=== PATIENT | male | born 1970 | race Caucasian/White ===

== ENCOUNTER 2021-12-05 00:50 | Day surgery (SDC) | payer BC, SELFPAY ==
[2021-11-21 11:08] VITALS: BMI 34.7
[2021-12-05 09:10] VITALS: BP 174/93; PULSE 73; RESP 18; TEMP 36.2; O2SAT 99
[2021-12-05] MEDS: LACTATED RINGERS 1,000 ML 150 ML IV CONT (09:17)
--- NOTE | 2021-12-05 09:22 | WPDANESEPPF ---
Anes - Initial Pre Proc Eval Procedure: Operation Date: 12/05/21 10:15 Proposed Procedures p Screening Colonoscopy - Yehuda Salgado MD Date/Time: 12/05/21 09:22 Surgeon: Yehuda Salgado MD Pre Op Diagnosis: neoplasm screening Patient Data Age: 51 Gender: M Height: 1.8 m Weight: 113.6 kg Last Vital Signs Temp 36.2 C L 12/05/21 09:10 Pulse 73 12/05/21 09:10 Resp 18 12/05/21 09:10 BP 174/93 H 12/05/21 09:10 Pulse Ox 99 12/05/21 09:10 O2 Del Method Room Air 12/05/21 09:10 Allergies Allergy/AdvReac Type Severity Reaction Status Date / Time No Known Allergies Allergy Verified 12/05/21 09:09 Home Medications Medication Instructions Recorded Confirmed Type lisinopril 10 1 tablet PO DAILY #30 tabs 10/23/21 11/21/21 Rx mg-hydrochlorothiazide 12.5 mg tablet tadalafil 20 mg tablet (Cialis) 20 mg PO DAILY PRN sexual activity 12/02/21 12/05/21 Rx #6 tabs Patient hx anesthesia problems: none Family hx anesthesia problems: none Results Review: All pre-operative results and documents have been reviewed as part of the pre-operative evaluation. [facility] Past Medical History Medical History Adult BMI 34.0-34.9 kg/sq m Apnea Essential hypertension GERD (gastroesophageal reflux disease) Screen for colon cancer Family History Family History Father Hypertension Mother Hypertension Grandparent Family history of malignant neoplasm of uterus Family history of heart disease in male family member before age 55 Social History Social History Smoking status: Never smoker Alcohol intake: current Drinks per week: 4 Substance use type: does not use Living arrangements: with family Spiritual care concerns: No Anes - Eval Final PreProcedure Day of Procedure 12/05/21 09:22 Patient weight: obese Heart: regular rate and rhythm Lungs: clear to auscultation Airway: Mallampati scale class IV Neurological: alert and oriented Last oral intake: >/= 8 hours ASA classification: III Emergent: no Anesthetic plan: proceed Anesthesia type and monitoring: general GIVS and standard monitoring Results Review: All pre-operative results and documents have been reviewed as part of the pre-operative evaluation. Informed Consent: The patient's anesthetic plan and its attendant risks and benefits were discussed with the patient/family/POA. Questions were solicited and answers provided to the satisfaction of the patient/family/POA.
--- NOTE | 2021-12-05 10:04 | P.HP_ITS ---
H&P: HPI History of Present Illness Date/Time: 12/05/21 10:04 Chief Complaint: Neoplasia screening. Narrative: This is a 51-year-old white male patient presents for screening colonoscopy. Patient's current weight appetite bowel movements are normal. He denies abdominal pain. He has had no bleeding. Family history is noncontributory. Review of Systems Review of Systems: Review of systems noncontributory. [facility] Past Medical History Medical History Adult BMI 34.0-34.9 kg/sq m Apnea Essential hypertension GERD (gastroesophageal reflux disease) Screen for colon cancer Family History Family History Father Hypertension Mother Hypertension Grandparent Family history of malignant neoplasm of uterus Family history of heart disease in male family member before age 55 Social History Social History Smoking status: Never smoker Alcohol intake: current Drinks per week: 4 Substance use type: does not use Living arrangements: with family Spiritual care concerns: No Meds Home Medications and Allergies Home Medications Medication Instructions Recorded Confirmed Type lisinopril 10 1 tablet PO DAILY #30 tabs 10/23/21 11/21/21 Rx mg-hydrochlorothiazide 12.5 mg tablet tadalafil 20 mg tablet (Cialis) 20 mg PO DAILY PRN sexual activity 12/02/21 12/05/21 Rx #6 tabs Allergies Allergy/AdvReac Type Severity Reaction Status Date / Time No Known Allergies Allergy Verified 12/05/21 09:09 Vital Signs Vital Signs - 24 hr 12/05/21 09:10 Temperature 97.1 F L Pulse Rate 73 Respiratory Rate 18 Blood Pressure 174/93 H Pulse Oximetry 99 Oxygen Delivery Room Air Exam Narrative: Physical exam reveals patient to be alert. Vital signs stable. HEENT exam is unremarkable. Patient is anicteric. Lungs are clear to auscultation and percussion. Heart is without murmur or extra sounds. Abdominal exam bowel sounds present soft nontender with no organomegaly. Digital external rectal exam is normal. Assessment and Plan Assessment and plan (1) Encounter for screening colonoscopy: Code(s): Z12.11 - Encounter for screening for malignant neoplasm of colon Status: Acute Assessment and Plan: Patient presents for screening colonoscopy. Current weight appetite bowel movements are normal. Further recommendations will be given after endoscopy.
[2021-12-05 10:28] VITALS: BP 126/78; PULSE 70; RESP 17; O2SAT 99
[2021-12-05 10:38] VITALS: BP 123/80; PULSE 69; RESP 17; O2SAT 98
[2021-12-05 10:48] VITALS: BP 131/92; PULSE 67; RESP 16; O2SAT 96
== END 2021-12-05 10:50 | disposition home or self-care (01) ==
PROVIDERS: PCP Family Medicine; Visit Provider Internal Medicine Gastroenterology
PROC: 0DJD8ZZ Inspection of Lower Intestinal Tract, Via Natural or Artificial Opening Endoscopic (ICD-10-PCS; CPT 45378; principal; 2021-12-05 10:15)
DX: Z12.11 Encounter for screening for malignant neoplasm of colon (principal); K64.8 Other hemorrhoids; R06.81 Apnea, not elsewhere classified; I10 Essential (primary) hypertension; K21.9 Gastro-esophageal reflux disease without esophagitis; E66.9 Obesity, unspecified; Z68.34 Body mass index [BMI] 34.0-34.9, adult
CPT/HCPCS: 45378; J2704; J7120

== ENCOUNTER 2021-12-12 07:49 | Outpatient (CLI) | payer BC, SELFPAY ==
--- NOTE | 2021-12-29 19:04 | WPDHOMESLEEP ---
Sleep Study - Home Unattended Date of Study: 12/12/21 Ordering Provider: Main Humphreys MD Interpreting Provider: Rhonda Kenny, DO Home Sleep Study Type: Watch PAT Height: 1.8 m Weight: 113.398 kg Body Mass Index: 34.8 Neck Circumference (inches): 18 [place]: 7 Reason for Sleep Study Snoring and apneas Sleep History The patient is a 51-year-old male with hypertension, GERD, seasonal allergies and sexual dysfunction that had a sleep study ordered by his primary care physician for evaluation of sleep apnea. The patient rarely awakens from sleep short of breath. He occasionally awakens at night with heartburn, belching or cough. He frequently snores loud enough that others complain. He rarely has trouble sleeping when he has a cold. He rarely wakes up gasping for air throughout the night. He occasionally has breathing problems at night observed by himself or others. He denies sweating excessively at night. He denies having heart palpitations or irregular heartbeats during the night. He rarely falls asleep during the day but never while driving. He denies sleep paralysis, cataplexy and hypnagogic / hypnopompic hallucinations. He denies having trouble at school or work due to sleepiness. He denies feeling afraid of going to sleep. He denies having nightmares. He rarely remembers his dreams. He denies having thoughts racing through his mind. He denies feeling sad or depressed. He occasionally has anxiety. He denies having muscular tension. He denies noticing parts of his body jerk. He denies kicking during the night. He rarely has crawling and aching feelings in his legs. He denies having leg pain during the night. He occasionally grinds his teeth during sleep but rarely awakens with morning jaw pain. He is rarely bothered by pain during the day and never awakened by pain during the night. He rarely wakes up feeling stiff in the morning. He rarely wakes up with sore achy muscles. He rarely wakes up with pain in the neck, spine or other joints. He goes to bed between 930-10 p.m. on weekdays and between 10 30 to 11:30 p.m. on the weekends. He takes him 2-3 minutes to fall asleep. He wakes up 1-2 times throughout the night for unknown reasons. When he awakens, he will try to fall back asleep or turn on the TV. He can take him a few minutes to an hour to fall back asleep. He wakes up at 5:00 a.m. on weekdays and at 6:30 a.m. on the weekends. He typically gets 6-8 hours of sleep per night. He will get up immediately after awakening during the week. He will stay in bed for 30-45 minutes after awakening on the weekends. He currently lives alone. He does not consume any caffeinated beverages within 2 hours of bedtime. He does not engage in physical exercise before bedtime. He will watch television before falling asleep. He will occasionally take naps in the afternoon or the evening and they are refreshing. He drinks 12 oz of caffeinated beverage per day. He drinks alcoholic beverages a few times per week. He denies tobacco and recreational drug use. [facility] Past Medical History Medical History Adult BMI 34.0-34.9 kg/sq m Apnea Essential hypertension GERD (gastroesophageal reflux disease) Screen for colon cancer Family History Family History Father Hypertension Mother Hypertension Grandparent Family history of malignant neoplasm of uterus Family history of heart disease in male family member before age 55 Social History Social History Smoking status: Never smoker Alcohol intake: current Drinks per week: 4 Substance use type: does not use Spiritual care concerns: No Medications Home Medications Medication Instructions Recorded Confirmed Type lisinopril 10 1 tablet PO DAILY #30 tabs 10/23/21 11/21/21 Rx mg-hydrochl
[2021-12-29 19:22] VITALS: BMI 34.8
== END 2021-12-16 11:08 | disposition home or self-care (01) ==
LOC: ANHCSM 07:51
PROVIDERS: PCP Family Medicine; Visit Provider Family Medicine
DX: G47.33 Obstructive sleep apnea (adult) (pediatric) (principal)
CPT/HCPCS: 95800

== ENCOUNTER 2022-02-18 07:47 | Outpatient (CLI) | payer BC, SELFPAY ==
--- NOTE | 2022-03-15 16:23 | WPDSLEEPSTUD ---
Sleep Study Date of Study: 02/18/22 Ordering Provider: Main Humphreys MD Interpreting Physician: Pamela Santos MD Sleep Study Type: CPAP Titration Height: 1.8 m Weight: 113.398 kg Body Mass Index: 34.8 Neck Circumference (inches): [address] [place]: 7 Reason for Sleep Study * 12/12/2021, home sleep test using WatchPat, severe sleep apnea with an AHI of 43.1, desaturation to 69%. He present for a CPAP titration. Sleep History Jeronimo Berrios?is a 51-year-old male with hypertension, GERD, seasonal allergies and sexual dysfunction. He had a home sleep study showing severe obstructive sleep apnea. The patient rarely awakens from sleep short of breath.? He occasionally awakens at night with heartburn, belching or cough.? He frequently snores loud enough that others complain.? He rarely has trouble sleeping when he has a cold.? He rarely wakes up gasping for air throughout the night.? He occasionally has breathing problems at night observed by himself or others.? He denies sweating excessively at night.? He denies having heart palpitations or irregular heartbeats during the night.? He rarely falls asleep during the day but never while driving.? He denies sleep paralysis, cataplexy and hypnagogic / hypnopompic hallucinations.? He denies having trouble at school or work due to sleepiness.? He denies feeling afraid of going to sleep.? He denies having nightmares.? He rarely remembers his dreams.? He denies having thoughts racing through his mind.? He denies feeling sad or depressed.? He occasionally has anxiety.? He denies having muscular tension.? He denies noticing parts of his body jerk.? He denies kicking during the night.? He rarely has crawling and aching feelings in his legs.? He denies having leg pain during the night.? He occasionally grinds his teeth during sleep but rarely awakens with morning jaw pain.? He is rarely bothered by pain during the day and never awakened by pain during the night.? He rarely wakes up feeling stiff in the morning.? He rarely wakes up with sore achy muscles.? He rarely wakes up with pain in the neck, spine or other joints.? He goes to bed between 930-10 p.m. on weekdays and between 10 30 to 11:30 p.m. on the weekends.? He takes him 2-3 minutes to fall asleep.? He wakes up 1-2 times throughout the night for unknown reasons.? When he awakens, he will try to fall back asleep or turn on the TV.? He can take him a few minutes to an hour to fall back asleep.? He wakes up at 5:00 a.m. on weekdays and at 6:30 a.m. on the weekends.? He typically gets 6-8 hours of sleep per night.? He will get up immediately after awakening during the week.? He will stay in bed for 30-45 minutes after awakening on the weekends.? He currently lives alone.? He does not consume any caffeinated beverages within 2 hours of bedtime.? He does not engage in physical exercise before bedtime.? He will watch television before falling asleep.? He will occasionally take naps in the afternoon or the evening and they are refreshing. He drinks 12 oz of caffeinated beverage per day.? He drinks alcoholic beverages a few times per week.? He denies tobacco and recreational drug use. [facility] Past Medical History Medical History Adult BMI 34.0-34.9 kg/sq m Apnea Essential hypertension GERD (gastroesophageal reflux disease) Screen for colon cancer Family History Family History Father Hypertension Mother Hypertension Grandparent Family history of malignant neoplasm of uterus Family history of heart disease in male family member before age 55 Social History Social History Smoking status: Never smoker Alcohol intake: current Drinks per week: 4 Substance use type: does not use Spiritual care concerns: No Medications Home Medications Medication Instructions Recorded Con
[2022-03-15 16:25] VITALS: BMI 34.8
== END 2022-02-19 05:46 | disposition home or self-care (01) ==
PROVIDERS: PCP Family Medicine; Visit Provider Family Medicine
DX: G47.33 Obstructive sleep apnea (adult) (pediatric) (principal)
CPT/HCPCS: 95811

== ENCOUNTER 2023-01-23 13:42 | Emergency (ER) | payer BC, OTHER, SELFPAY ==
--- NOTE | 2023-01-23 13:57 | ED.EYEPROB ---
HPI - Eye Problem General Chief complaint: Eye Problems Stated complaint: Scratched left eye Time Seen by Provider: 01/23/23 13:57 Source: patient, RN notes reviewed and old records reviewed Mode of arrival: ambulatory Limitations: no limitations History of Present Illness HPI Narrative: 52-year-old male presents to the [facility] with a concern that he scratched his eye. Patient sure mechanism of injury. Pain to the left eye since last night. Increased tearing. Patient wears contact lenses. Related Data Patient tetanus UTD: No Allergies Allergy/AdvReac Type Severity Reaction Status Date / Time No Known Allergies Allergy Verified 01/23/23 13:59 Review of Systems Review of Systems: All systems reviewed & are unremarkable except as noted in HPI and below Constitutional: Constitutional: Reports no additional constitutional complaints Eyes: Eyes: Reports as per HPI ENT: Reports system reviewed and no additional complaints, except as documented Cardiovascular: Cardiovascular: Reports no additional cardiovascular complaints, Denies chest pain and Denies dyspnea Respiratory: Respiratory: Reports no additional respiratory complaints, Denies chest congestion, Denies cough and Denies dyspnea Gastrointestinal: Gastrointestinal: Reports no additional gastrointestinal complaints, Denies abdominal pain, Denies nausea and Denies vomiting Musculoskeletal: Musculoskeletal: Reports no additional musculoskeletal complaints Integumentary/Breasts: Skin/Breast: Reports system reviewed and no additional complaints, except as docu Neurologic: Reports system reviewed and no additional complaints, except as documented Psychiatric: Psychiatric: Reports no additional psychiatric complaints Allergic/Immunologic: Allergic/Immunologic: Reports no additional allergic/immunologic complaints PMFSH Past Medical History Medical History Adult BMI 34.0-34.9 kg/sq m Apnea Essential hypertension GERD (gastroesophageal reflux disease) Screen for colon cancer Family History Family History Father Hypertension Mother Hypertension Grandparent Family history of malignant neoplasm of uterus Family history of heart disease in male family member before age 55 Social History Social History Smoking status: Never smoker Alcohol intake: current Drinks per week: 4 Substance use type: does not use Lack of Transportation: No Lack of Food: Never True Current Housing: I Have Housing Concerned About Future Housing: No Difficulty Paying Gas/Electric Bills: No Difficulty Paying for Meds: No Currently Unemployed: No Education: Master's Degree or Higher Difficulty w/ Childcare or Family Care: No Living arrangements: with family Spiritual care concerns: No Comments At the time of my signature, I reviewed and agree with the nursing past medical, surgical, social, and family history. There is no relevant family history pertinent to the patient complaint. Exam Const: General: cooperative, healthy appearing, comfortable, no acute distress, well developed, alert and well nourished Nutritional Appearance: well nourished Orientation/consciousness: patient oriented x3 Limitations: no limitations HENMT: Head: normal to inspection Ears: hearing grossly normal bilaterally and external ears normal Face/Nose/Sinus: Normal external nose present, Normal nares present, Normal nasal mucous membranes and turbinates present and normal facial exam Face and sinus: normal facial exam Mouth: Yes Normal oral and palatal mucosa present, Yes lip normal and Yes moist mucous membranes Throat: posterior oropharynx normal and uvula midline Eyes: General: appearance normal, both eyes and all related structures Alignment and Position: alignment normal Periorbital: periorbital findings normal
[2023-01-23 14:00] VITALS: BP 129/89; PULSE 75; RESP 16; TEMP 36.3; O2SAT 99
[2023-01-23] MEDS: TETANUS,DIPHTHERIA,AC PERTUSSIS ADULT (0.5 ML) BOOSTRIX IM (14:14)
== END 2023-01-23 14:28 | disposition home or self-care (01) ==
PROVIDERS: Emergency Provider Nurse Practitioner; PCP Family Medicine
DX: S05.02XA Injury of conjunctiva and corneal abrasion without foreign body, left eye, initial encounter (principal); T14.90XA Injury, unspecified, initial encounter; I10 Essential (primary) hypertension; K21.9 Gastro-esophageal reflux disease without esophagitis; Z23 Encounter for immunization
CPT/HCPCS: 90471; 90715; 99213; A9270; G0463